=== PATIENT | male | born 1950 | race Caucasian/White ===

== ENCOUNTER → 2017-01-25 | Outpatient (CLI) | payer OTHER ==
[~2017-01-25] MED LIST: OXYC-57 PO
[2017-01-25 09:45] LABS: BASO % 0.4 %; BASO ABS # 0.02 K/uL (0-0.2); COMPLETE YES; EOS % 2.9 %; HEMATOCRIT 42.2 % (42-52); IG% 0.4 %; LYMPH % 41.8 %; LYMPH ABS # 1.86 K/uL (1.2-3.4); MEAN CELL VOLUME 87.2 fL (80-100); MEAN CORPUSCULAR HEMOGLOBIN 29.8 pg (25-34); MEAN CORPUSCULAR HGB CONC 34.1 g/dl (32-36); MEAN PLATELET VOLUME 9.8 fL (7.4-10.4); MONO % 13.9 %; NEUT % 40.6 %; PLATELET COUNT 238 K/uL (130-400); RED BLOOD COUNT 4.84 M/uL (4.7-6.1); WHITE BLOOD COUNT 4.45 K/uL (4.8-10.8)
[2017-01-25 10:07] LABS: BLOOD UREA NITROGEN 23 mg/dl (7-18); BUN/CREATININE RATIO 25.1 (10-20); CALCIUM 8.9 mg/dl (8.5-10.1); CARBON DIOXIDE 30 mmol/L (21-32); CHLORIDE 105 mmol/L (98-107); CHOLESTEROL 202 mg/dl (0-200); CREATININE 0.91 mg/dl (0.60-1.40); GLUCOSE 90 mg/dl (70-99); POTASSIUM 3.8 mmol/L (3.5-5.1); SODIUM 142 mmol/L (136-145)
[2017-01-25 10:20] LABS: CHOLESTEROL/HDL RATIO 3.6; HDL CHOLESTEROL 56 mg/dl; LDL CHOLESTEROL CALCULATED 124 mg/dl; TRIGLYCERIDES 110 mg/dl (0-150); VERY LOW DENSITY LIPOPROT CALC 22 mg/dl
[2017-01-25 11:27] LABS: LYME DISEASE AB IGG NEG (NEG); LYME DISEASE AB IGM NEG (NEG)
== END | disposition home or self-care (01) ==
LOC: C.LAB 07:33
PROVIDERS: ATTEND Internal Medicine
DX: Z00.00 Encounter for general adult medical examination without abnormal findings (principal); Z01.812 Encounter for preprocedural laboratory examination; E78.5 Hyperlipidemia, unspecified; Z12.5 Encounter for screening for malignant neoplasm of prostate; M25.50 Pain in unspecified joint; Z11.59 Encounter for screening for other viral diseases; K40.90 Unilateral inguinal hernia, without obstruction or gangrene, not specified as recurrent

== ENCOUNTER → 2017-02-01 | Day surgery (SDC) | payer OTHER ==
[2017-01-24 10:29] VITALS: Ht 180.3 cm; Wt 92.3 kg
--- NOTE | 2017-01-25 08:17 | DIAGNOSTIC IMAGING REPORT ---
CHEST 2 VIEWS ROUTINE CLINICAL HISTORY: Preoperative chest. Hernia. COMPARISON STUDY: No previous studies for comparison. FINDINGS: The cardiac and mediastinal contours are normal. There is no evidence of focal pulmonary consolidation. There is no evidence of failure. No pleural effusions are visualized.[ IMPRESSION: No active disease in the chest. Electronically signed by: Janes Eubanks M.D. 01/25/2017 8:16 AM Dictated Date/Time: 01/25/2017 8:16 AM
[~2017-02-01] VITALS: Ht 180.3 cm; Wt 92.3 kg
[~2017-02-01] MED LIST changes: +ATROPINE SULFATE 0.1 MG/ML 5ML SYR IV PRN; +BACITRACIN 50000 UNIT VIAL ONE; +BUPIVACAINE 0.5 % 5 MG/1 ML MPF 30ML VIAL ONE; +CEFAZOLIN SOD 1 GM VIAL ONE; +DEXAMETHASONE SOD INJ 4 MG/ML VIAL ONE; +EpHEDrine SULFATE INJ 50 MG/ML AMP IV PRN; +FENTANYL CITRATE INJ 50 MCG/1 ML 2 ML VIAL IV PRN; +FENTANYL CITRATE INJ 50 MCG/1 ML 2 ML VIAL ONE; +LACTATED RINGER'S 1000ML 1,000 ML IV SCH; +LIDOCAINE HCL 2% 2 ML VIAL (20MG/ML) ONE; +MIDAZOLAM HCL 1 MG/ML 2ML VIAL ONE; +MoRPHine SULFATE 2 MG/ML CARP IV PRN; +ONDANSETRON INJ 2 MG/ML 2 ML VIAL IV PRN; +ONDANSETRON INJ 2 MG/ML 2 ML VIAL ONE; +OXYCODONE/ACETAMINOPHEN 5-325 TAB PO PRN; +PROPOFOL IV EMULSION 10 MG/ML 20 ML VIAL IV ONE; +SODIUM CHLORIDE 0.9% INJ 10 ML VIAL ONE
--- NOTE | 2017-02-01 07:07 | Discharge Instructions ---
Discharge Instructions Date of Service Feb 01, 2017. Visit Reason for Visit: Right Inguinal Hernia Discharge Discharge Diagnosis / Problem: Inguinal hernia repair Discharge Goals Goal(s): Decrease discomfort Activity Recommendations Activity Limitations: as noted below Lifting Limitations: no more than 10 pounds Shower/Bathe: tomorrow Driving or Machine Use: in 5-7 days if not taking Percocet Anesthesia . Post Anesthesia Instructions: If you have had General Anesthesia or IV Sedation: * Do not drive today. * Resume driving when surgeon permits. * Do not make important decisions or sign legal documents today. * Call surgeon for: 1. Temperature elevations greater than 101 degrees F. 2. Uncontrollable pain. 3. Excessive bleeding. 4. Persistent nausea and vomiting. 5. Medication intolerance (nausea, vomiting or rash). * For nausea and vomiting use only clear liquids such as: tea, soda, bouillon until nausea subsides, then gradually increase diet as tolerated. * If you have any concerns or questions, call your surgeon's office. If physician is unavailable and it is an emergency, call 911 or go to the nearest emergency room. . Instructions / Follow-Up Instructions / Follow-Up Dr. Hickman in 1 week, call [phone] if you do not already have an appt Ice groin (incision) off and on alternating every 20 minutes until bedtime Diet Recommendations Recommended Home Diet: no limitations Pending Studies Studies pending at discharge: no Medical Emergencies . Who to Call and When: Medical Emergencies: If at any time you feel your situation is an emergency, please call 911 immediately. . Non-Emergent Contact Non-Emergency issues call your: Surgeon Call Non-Emergent contact if: you have a fever, temperature is above 101.5, your pain is not controlled, wound has increased redness . . "Provider Documentation" section prepared by Clay Fitzgerald.
--- NOTE | 2017-02-01 08:12 | History & Physical Bridge Note ---
H&P Re-Evaluation Bridge Note: I have examined the patient, reviewed the History & Physical and in the interval since the performance of the History & Physical I have noted the following changes of clinical significance: No changes noted pt marked h and p resigned at bedside
--- NOTE | 2017-02-01 09:43 | [facility] Post Operative Brief Note ---
Immediate Operative Summary Operative Date Feb 01, 2017. Pre-Operative Diagnosis Right Inguinal Hernia Post-Operative Diagnosis Right Inguinal Hernia; Large Lipoma of Cord Procedure(s) Performed Right Inguinal Open Hernia Repair With Mesh excision lipoma cord Surgeon Dr. Hickman Development Lead Surgeon(s) Danis Fitzgerald PA-C Estimated Blood Loss 3 mL Findings large lipoma indirect ring extending to external ring Specimens None
--- NOTE | 2017-02-01 10:03 | Anesthesia Progress Nt - [facility] ---
Anesthesia Post Op Note Date & Time Feb 01, 2017 at 10:03 Vital Signs Pain Intensity: 0 Vital Signs Past 12 Hours Date Time Temp Pulse Resp B/P Pulse Ox O2 Delivery O2 Flow Rate FiO2 02/01/17 09:42 62 14 02/01/17 09:42 60 14 100 02/01/17 09:40 139/84 02/01/17 09:38 36.8 70 16 150/87 100 Mask 8 02/01/17 09:37 66 150/87 100 02/01/17 09:37 67 02/01/17 07:18 37.2 66 16 120/78 98 Room Air Notes Mental Status: alert / awake / arousable, participated in evaluation Pt Amnestic to Procedure: Yes Nausea / Vomiting: adequately controlled Pain: adequately controlled Airway Patency, RR, SpO2: stable & adequate BP & HR: stable & adequate Hydration State: stable & adequate Anesthetic Complications: no major complications apparent
[2017-02-01 10:39] VITALS: BP 143/87; PULSE 55; O2SAT 100
--- NOTE | 2017-02-01 11:06 | OPERATIVE REPORT ---
DATE OF OPERATION: 02/01/2017 PREOPERATIVE DIAGNOSIS: Symptomatic right inguinal hernia. POSTOPERATIVE DIAGNOSIS: Same with large lipoma of the cord extending down to the external ring, direct weakness. PROCEDURE: Open repair of right inguinal hernia. SURGEON: Dr. Hickman. [employer] RADIO OPERATOR: Luis Fernando Fitzgerald PA-C. OPERATION AND FINDINGS: SUMMARY: The patient was brought into the operating room theater under general anesthetic. Right lower quadrant was prepped with Betadine scrubbing solution and properly draped. Systemic antibiotics were given. A timeout was had. We used 0.5% Marcaine plain to preemptive local analgesia 2 fingerbreadths medial anterior superior iliac crest, subfascially external oblique. An incision was made parallel to the inguinal ligament. We took it down lower than normal towards the scrotal area since the patient had a large bulge at the external ring. Then the subcutaneous tissues some venous plexus were ligated with 2-0 silk down to the external oblique which more local was used. We opened along the course of its fibers. The nerve identified and avoided. We cut the external oblique all the way to the external ring where a significant amount of fatty tissue was appreciated in that area. We elevated the cord and its structures over a Seda drain, identified this fatty tissue , freed it up from the cord was actually coming out just lateral in the internal ring lateral aspect quite significant, extending probably 20 cm or so. We then rather than resect this area which had a broad base, I elected to return retroperitoneally. I used some 3-0 silk suture to close around the internal ring. We checked the internal ring for an indirect hernia and deep dissection, we could not see the small indirect hernia, but we left it alone since it was deep into the internal ring area and I think we were pulling up the peritoneum. The patient also had a direct weakness which we then closed together with a Marlex mesh, sutured onto the symphysis pubis, shelving portion of inguinal ligament, above the conjoined tendon. The nerve was placed along the cord structures to avoid entrapment. Then we made sure that we had enough mesh well beyond the internal ring laterally to cover the defects that we closed initially. The repair appeared to be solid. The mesh was checked for hemostasis and appeared satisfactory as was the cord. Then we closed the external oblique fascia on top of the cord and the mesh with 3-0 interrupted silk, 3-0 Dexon and stephen for skin edges. Dressing was applied. The procedure was tolerated well by the patient. Estimated blood loss approximately 3 mL. The patient was taken to recovery room in good condition. I attest to the content of the Intraoperative Record and any orders documented therein. Any exceptio ns are noted below.
== END | disposition home or self-care (01) ==
LOC: X.SURG 07:10
PROVIDERS: ATTEND Surgery
DX: K40.90 Unilateral inguinal hernia, without obstruction or gangrene, not specified as recurrent (principal); D17.6 Benign lipomatous neoplasm of spermatic cord; L57.0 Actinic keratosis; K21.9 Gastro-esophageal reflux disease without esophagitis; E78.5 Hyperlipidemia, unspecified; D48.5 Neoplasm of uncertain behavior of skin; Z98.890 Other specified postprocedural states

== ENCOUNTER → 2018-02-11 | Outpatient (CLI) | payer OTHER ==
[2018-02-11 10:09] LABS: ALT/SGPT 29 U/L (12-78); AST/SGOT 16 U/L (15-37); BLOOD UREA NITROGEN 22 mg/dl (7-18); CALCIUM 8.8 mg/dl (8.5-10.1); CARBON DIOXIDE 30 mmol/L (21-32); CHOLESTEROL 215 mg/dl (0-200); CREATININE 0.87 mg/dl (0.60-1.40); GLUCOSE 89 mg/dl (70-99); POTASSIUM 3.9 mmol/L (3.5-5.1); SODIUM 139 mmol/L (136-145)
[2018-02-11 10:13] LABS: LDL CHOLESTEROL CALCULATED 144 mg/dl
== END | disposition home or self-care (01) ==
LOC: C.LAB 08:41
PROVIDERS: ATTEND Internal Medicine
DX: M25.50 Pain in unspecified joint (principal); E78.5 Hyperlipidemia, unspecified; Z12.5 Encounter for screening for malignant neoplasm of prostate; K40.90 Unilateral inguinal hernia, without obstruction or gangrene, not specified as recurrent